=== PATIENT | female | born 1960 | race Caucasian/White ===

== ENCOUNTER → 2018-01-02 | Outpatient (CLI) | payer BC ==
--- NOTE | 2018-01-04 10:44 | MM ---
Reason for exam: screening (asymptomatic). Last mammogram was performed 1 year and 6 months ago. History: Patient is postmenopausal and has history of other cancer at age 49. Family history of breast cancer in paternal aunt at age 50. Took hormonal contraceptives for 4 years beginning at age 41. Physical Findings: A clinical breast exam by your physician is recommended on an annual basis and results should be correlated with mammographic findings. MG Screening Mammo w CAD Bilateral CC and MLO view(s) were taken. Prior study comparison: July 07, 2016, right breast MG work up mamm w CAD RT. June 30, 2016, bilateral MG screening mammo w CAD. The breast tissue is heterogeneously dense. This may lower the sensitivity of mammography. No significant changes when compared with prior studies. ASSESSMENT: Benign, BI-RAD 2 RECOMMENDATION: Routine screening mammogram of both breasts in 1 year.
== END | disposition home or self-care (01) ==
LOC: RADMAMWWP 06:51
PROVIDERS: ATTEND Family Medicine
DX: Z12.31 Encounter for screening mammogram for malignant neoplasm of breast (principal)
CPT/HCPCS: 77067

== ENCOUNTER → 2019-03-14 | Outpatient (CLI) | payer BC ==
--- NOTE | 2019-03-14 08:40 | BD ---
EXAMINATION TYPE: Axial Bone Density DATE OF EXAM: 03/14/2019 COMPARISON: NONE CLINICAL HISTORY: Screening for osteoporosis. Postmenopausal female. Height: 64 inches Weight: 128 FRAX RISK QUESTIONS: Alcohol (3 or more units per day): no Family History (Parent hip fracture): no Glucocorticoids (More than 3mos): no (Ex: prednisone, prednisolone, methylprednisolone, dexamethasone, and hydrocortisone). History of Fracture in Adulthood: no Secondary Osteoporosis: 1. Type 1 Diabetes: no 2. Hyperthyroidism: no 3. Menopause before 45: no 4. Malnutrition: no 5. Chronic liver disease: no Rheumatoid Arthritis: no Current Tobacco Use: no RISK FACTORS HISTORY OF: Family History of Osteoporosis: yes, paternal aunt Active: yes Diet low in dairy products/other sources of calcium: no Postmenopausal woman: yes Take estrogen and/or progesterone medications: not now How long: hormonal contraceptives about 4 years Lost more than 2 inches in height since high school: unsure, states height may have been about 66 inc hes at one time Frequent falls: no Poor Health: no Hyperparathyroidism: no Adrenal Insufficiency: no MEDICATIONS: Prednisone or other steroids: no Thyroid Medications: no Osteoporosis Medications: no Additional Medications: calcium & Vitamin D Additional History: EXAM MEASUREMENTS: Bone mineral densitometry was performed using the [employer] System. Bone mineral density as measured about the Lumbar spine is: ----- L1-L4(G/cm2): 1.324 T Score Values are as follows: ----- L2: 0.3 ----- L3: 2.5 ----- L4: 2.1 ----- L1-L4: 1.2 Bone mineral density not previously done at this facility; done elsewhere Bone mineral density about the R hip (g/cm2): 0.774 Bone mineral density about the L hip (g/cm2): 0.789 T Score values are as follows: -----R Neck: -1.9 -----L Neck: -1.8 -----R Total: -1.3 -----L Total: -1.1 Bone mineral density not previously done at this facility; done elsewhere IMPRESSION: Osteopenia (T Score between -2.5 and -1). There is slightly increased risk of fracture and the patient may be considered for treatment. Re-Screen 2-5 years. NOTE: T-SCORE=SD OF THE YOUNG ADULT MEAN.
--- NOTE | 2019-03-14 12:24 | MM ---
Reason for exam: screening (asymptomatic). Last mammogram was performed 1 year and 2 months ago. History: Patient is postmenopausal and has history of other cancer at age 49. Family history of breast cancer in sister at age 62 and breast cancer in paternal aunt at age 50. Took hormonal contraceptives for 4 years beginning at age 41. Physical Findings: A clinical breast exam by your physician is recommended on an annual basis and results should be correlated with mammographic findings. MG Screening Mammo w CAD Bilateral CC and MLO view(s) were taken. Prior study comparison: January 02, 2018, bilateral MG screening mammo w CAD. July 07, 2016, right breast MG work up mamm w CAD RT. There are scattered fibroglandular densities. No significant changes when compared with prior studies. ASSESSMENT: Benign, BI-RAD 2 RECOMMENDATION: Routine screening mammogram of both breasts in 1 year.
== END ==
LOC: RADMAMWWP 06:58
PROVIDERS: ATTEND Family Medicine
DX: Z12.31 Encounter for screening mammogram for malignant neoplasm of breast (principal); M85.80 Other specified disorders of bone density and structure, unspecified site
CPT/HCPCS: 77067; 77080

== ENCOUNTER → 2020-09-09 | Outpatient (CLI) | payer BC ==
--- NOTE | 2020-09-09 09:43 | MM ---
Reason for exam: screening (asymptomatic). Last mammogram was performed 1 year and 6 months ago. History: Patient is postmenopausal and has history of other cancer at age 49. Family history of breast cancer in sister at age 62 and breast cancer in paternal aunt at age 50. Took hormonal contraceptives for 4 years beginning at age 41. Physical Findings: A clinical breast exam by your physician is recommended on an annual basis and results should be correlated with mammographic findings. MG Screening Mammo w CAD Bilateral CC and MLO view(s) were taken. Prior study comparison: March 14, 2019, bilateral MG screening mammo w CAD. January 02, 2018, bilateral MG screening mammo w CAD. There are scattered fibroglandular densities. There is no discrete abnormality. No significant changes when compared with prior studies. ASSESSMENT: Negative, BI-RAD 1 RECOMMENDATION: Routine screening mammogram of both breasts in 1 year.
== END | disposition home or self-care (01) ==
LOC: RADMAMWWP 06:53
PROVIDERS: ATTEND Obstetrics & Gynecology
DX: Z12.31 Encounter for screening mammogram for malignant neoplasm of breast (principal)
CPT/HCPCS: 77067

== ENCOUNTER → 2021-12-07 | Outpatient (CLI) | payer OTHER ==
--- NOTE | 2021-12-07 10:17 | MM ---
Reason for exam: screening (asymptomatic). Last mammogram was performed 1 year and 3 months ago. History: Patient is postmenopausal and has history of other cancer at age 49. Family history of breast cancer in sister at age 62 and breast cancer in paternal aunt at age 50. Took hormonal contraceptives for 4 years beginning at age 41. Physical Findings: A clinical breast exam by your physician is recommended on an annual basis and results should be correlated with mammographic findings. MG Screening Mammo w CAD Bilateral CC and MLO view(s) were taken. Prior study comparison: September 09, 2020, bilateral MG screening mammo w CAD. March 14, 2019, bilateral MG screening mammo w CAD. The breast tissue is heterogeneously dense. This may lower the sensitivity of mammography. There is no discrete abnormality. ASSESSMENT: Negative, BI-RAD 1 RECOMMENDATION: Routine screening mammogram of both breasts in 1 year.
== END | disposition home or self-care (01) ==
LOC: RADMAMWWP 07:09
PROVIDERS: ATTEND Obstetrics & Gynecology
DX: Z12.31 Encounter for screening mammogram for malignant neoplasm of breast (principal)
CPT/HCPCS: 77067

== ENCOUNTER → 2023-06-23 | Outpatient (CLI) | payer BC ==
--- NOTE | 2023-06-23 07:57 | MM ---
Reason for Exam: Follow-up at short interval from prior study. Last screening mammogram was performed 7 month(s) ago. Patient History: Menarche at age 11. First Full-Term at age 26. Postmenopausal. Hormonal Contraceptives, starting at age 41 for 4 years. Paternal aunt had breast cancer, age 50. Sister had breast cancer, age 62. Risk Values: Chantal 5 year model risk: 3.2%. NCI Lifetime model risk: 12.4%. Prior Study Comparison: 12/07/2021 Bilateral Screening Mammogram, [facility]. 12/14/2022 Bilateral MG screening mammo w CAD, [facility]. 12/16/2022 Left MG work up mamm w CAD LT, [facility]. Tissue Density: Left: There are scattered fibroglandular densities. Findings: Analyzed By CAD. Stable asymmetric breast tissue within the upper left breast. No new suspicious mass or group of calcifications. No architectural distortion. Overall Assessment: Benign, BI-RAD 2 Management: Screening Mammogram of both breasts in 6 months. A clinical breast exam by your physician is recommended on an annual basis and results should be correlated with mammographic findings. This exam should not preclude additional follow-up of suspicious palpable abnormalities. Results were given to the patient verbally at the time of exam. Note on Chantal scores and lifetime risk: 1. A Chantal score greater than 3% is considered moderate risk. If this is the case, consider specialist referral to assess eligibility for a risk reducing agent. If overall lifetime risk for the development of breast cancer is 20% or higher, the patient may qualify for future screening with alternating mammogram and breast MRI. Electronically signed and approved by: Priyank Burton D.O.
== END | disposition home or self-care (01) ==
LOC: RADMAMWWP 07:35
PROVIDERS: ATTEND Obstetrics & Gynecology
DX: R92.8 Other abnormal and inconclusive findings on diagnostic imaging of breast (principal); Z78.0 Asymptomatic menopausal state; Z80.3 Family history of malignant neoplasm of breast
CPT/HCPCS: 77061; 77065

== ENCOUNTER → 2024-04-10 | Outpatient (CLI) | payer MEDICARE ==
--- NOTE | 2024-04-10 08:58 | BD ---
EXAMINATION TYPE: Axial Bone Density DATE OF EXAM: 04/10/2024 CLINICAL HISTORY: 64 years old Female. ICD-10 CODE: Z78.0 Post menopausal state Height: 63.5 Weight: 128.5 FRAX RISK QUESTIONS: Alcohol (3 or more units per day): no Family History (Parent hip fracture): no Glucocorticoids (More than 3mos): no (Ex: prednisone, prednisolone, methylprednisolone, dexamethasone, and hydrocortisone). History of Fracture in Adulthood: no Secondary Osteoporosis: 1. Type 1 Diabetes: no 2. Hyperthyroidism: no 3. Menopause before 45: no 4. Malnutrition: no 5. Chronic liver disease: no Rheumatoid Arthritis: no Current Tobacco Use: no RISK FACTORS HISTORY OF: Surgery to Spine/Hip(right/left)/Wrist (right/left): no EXAM MEASUREMENTS: Bone mineral densitometry was performed using the [employer] System. Bone mineral density as measured about the Lumbar spine is: ----- L1-L4(G/cm2): 1.317 T Score Values are as follows: ----- L1: -0.1 ----- L2: 0.4 ----- L3: 2.3 ----- L4: 1.9 ----- L1-L4: 1.1 Z Score Values are as follows: ----- L1: 1.7 ----- L2: 2.2 ----- L3: 4.1 ----- L4: 3.7 ----- L1-L4: 2.9 Bone mineral density has: decreased -0.5 % since study of: 03.14.2019 Bone mineral density about the R hip (g/cm2): 0.829 Bone mineral density about the L hip (g/cm2): 0.852 T Score values are as follows: -----R Neck: -2.1 -----L Neck: -1.7 -----R Total: -1.4 -----L Total: -1.2 Z Score values are as follows: -----R Neck: -0.5 -----L Neck: -0.1 -----R Total: -0.1 -----L Total: 0.1 Bone mineral density has: decreased -1.6 % since study of: 03.14.2019 FRAX%s: The graph provided illustrates a 10.4% chance for a major osteoporotic fx and a 1.7% chance f or the hips probability for fx in 10 years time. IMPRESSION: Osteopenia (T Score between -2.5 and -1). There is slightly increased risk of fracture and the patient may be considered for treatment. Re-Screen 2-5 years. NOTE: T-SCORE=SD OF THE YOUNG ADULT MEAN.
== END | disposition home or self-care (01) ==
LOC: RADBDWWP 06:55
PROVIDERS: ATTEND Family Medicine
DX: M85.89 Other specified disorders of bone density and structure, multiple sites (principal); Z78.0 Asymptomatic menopausal state
CPT/HCPCS: 77080

== ENCOUNTER → 2025-04-09 | Outpatient (CLI) | payer MEDICARE ==
--- NOTE | 2025-04-09 16:19 | MM ---
Reason for Exam: Screening (asymptomatic). Last mammogram was performed 2 year(s) and 4 month(s) ago. Patient History: Menarche at age 11. First Full-Term at age 26. Postmenopausal. Hormonal Contraceptives, starting at age 41 for 4 years. Paternal aunt had breast cancer, age 50. Sister had breast cancer, age 62. Risk Values: Chantal 5 year model risk: 3.3%. NCI Lifetime model risk: 11.5%. Prior Study Comparison: 12/14/2022 Bilateral MG screening mammo w CAD, [facility]. 12/16/2022 Left MG work up mamm w CAD LT, [facility]. 06/23/2023 Left MG 3D diag mammo w/cad LT, [facility]. Tissue Density: There are scattered areas of fibroglandular density. Findings: Analyzed By CAD. Areas of asymmetric density are unchanged. There is no suspicious group of microcalcifications or new suspicious mass in either breast. Overall Assessment: Benign, BI-RAD 2 Management: Screening Mammogram of both breasts in 1 year. Patient should continue monthly self-breast exams. A clinical breast exam by your physician is recommended on an annual basis. This exam should not preclude additional follow-up of suspicious palpable abnormalities. Note on Chantal scores and lifetime risk: 1. A Chantal score greater than 3% is considered moderate risk. If this is the case, consider specialist referral to assess eligibility for a risk reducing agent. 2. If overall lifetime risk for the development of breast cancer is 20% or higher, the patient may qualify for future screening with alternating mammogram and breast MRI. [facility], , 04/09/2025 4:16 PM. Electronically signed and approved by: Noreen Rivera M.D. Radiologist
== END | disposition home or self-care (01) ==
LOC: RADMAMWWP 14:27
PROVIDERS: ATTEND Family Medicine
DX: Z12.31 Encounter for screening mammogram for malignant neoplasm of breast (principal); R92.323 Mammographic fibroglandular density, bilateral breasts; Z78.0 Asymptomatic menopausal state; Z80.3 Family history of malignant neoplasm of breast
CPT/HCPCS: 77063; 77067